=== PATIENT | female | born 2005 | race Caucasian/White ===

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

== ENCOUNTER 2024-01-13 22:10 | Emergency (ER) | payer MEDICAID, SELFPAY ==
[2024-01-13 22:15] VITALS: BP 115/78; PULSE 73; RESP 18; TEMP 36.6; O2SAT 96; BMI 24.4
--- NOTE | 2024-01-13 22:34 | ED.GENADULT ---
HPI - General Adult General Chief complaint: Abdominal Pain Stated complaint: 5 wks , stomach pains Time Seen by Provider: 01/13/24 22:34 History of Present Illness HPI narrative: Presents with abdominal pain in her lower abdomen. Currently nauseous, vomited once. Has first OB appointment tomorrow 18-year-old young woman presenting to the emergency department with concern of lower abdominal pain. Is accompanied by her partner. History of constipation. Is constipated. Treating with prune juice other juice and fiber supplementation. Did have a bowel movement today. 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 She had sit down was feeling cramping and throbbing in the pelvis kind of radiating across. Centralized somewhat by the time she got here to the emergency department. No dysuria. No bleeding. No recent intercourse. Related Data Home Medications Medication Instructions Recorded Confirmed loratadine-pseudoephedrine PO PRN 09/30/23 prenatals 01/13/24 Previous Rx's Medication Instructions Recorded amoxicillin 500 mg capsule 500 mg PO TID 7 days #21 caps 10/03/23 Allergies Allergy/AdvReac Type Severity Reaction Status Date / Time No Known Drug Allergies Allergy Verified 01/27/24 13:36 Review of Systems Status of ROS: Reports: 6 or more systems reviewed and unremarkable except as noted in History and below [facility] Medical History No significant past medical history Surgical History No significant past surgical history Social History Smoking Status: Never smoker Do you use any of these nicotine containing products: None Second hand tobacco smoke exposure: No How often do you have a drink containing alcohol: never How often do you have six or more drinks on one occasion: Never AUDIT-C Alcohol total score: 0 Non-prescribed substance use: denies use service: No Exam Narrative: Exam Narrative: Very pleasant. NAD. Well-nourished. Carefully casually groomed. Breathing easily. Lungs are clear. Heart in regular rate and rhythm without murmur rub or gallop. Abdomen is soft and a little uncomfortable to palpation in the suprapubic area. No flank pain. Not particularly tender in the inguinal ligaments here. Pelvic exam otherwise is not done. Const: Vital Signs, click to edit/add: Vital Signs - 24 hr 01/13/24 22:15 Temperature 98 F Pulse Rate [Right Pulse Oximeter] 73 Respiratory Rate 18 Blood Pressure [Ri ght Upper Arm] 115/78 Pulse Oximetry 96 Oxygen Delivery Me thod Room Air Documenting provider has reviewed patient's vital signs: yes Course Vital Signs Vital signs: Initial Vital Signs Temperature 98 F 01/13/24 22:15 Temperature Source Temporal Artery Scan 01/13/24 22:15 Pulse Rate 73 01/13/24 22:15 Pulse Rhythm Regular 01/13/24 22:15 Respiratory Rate 18 01/13/24 22:15 Blood Pressure 115/78 01/13/24 22:15 Blood Pressure Mean 90 01/13/24 22:15 Blood Pressure Position Sitting 01/13/24 22:15 Pulse Oximetry 96 01/13/24 22:15 Oxygen Delivery Method Room Air 01/13/24 22:15 Vital Signs Temperature 98 F 01/13/24 22:15 Pulse Rate 73 01/13/24 22:15 Respiratory Rate 18 01/13/24 22:15 Blood Pressure 115/78 01/13/24 22:15 Pulse Oximetry 96 01/13/24 22:15 Oxygen Delivery Method Room Air 01/13/24 22:15 Temperature 98 F 01/14/24 00:52 Pulse Rate 68 01/14/24 00:52 Respiratory Rate 18 01/14/24 00:52 Blood Pressure 112/74 01/14/24 00:52 Pulse Oximetry 96 01/14/24 00:39 Oxygen Delivery Method Room Air 01/14/24 00:39 Medical Decision Making MDM Narrative Medical decision making narrative: Which check urinalysis here. Constipation certainly might be contributing given what she is said. Does not seem to demonstrate a musculoskeletal injury here. I did offer bedside ultrasound but we all acknowledge that it might be difficult to see anything. Does not appear to be experiencing miscarriage. Ectopic is in differential. Does not feel needs any intervention for pain Urinalysis was unremarkable. I did return with bedside ultrasound and able to visualize what looks to be intrauterine . I think we were seeing also appropriate cardiac activity. Appears relieved. See patient discharge plan further discussion Lab Data Lab results reviewed: Yes I reviewed the patient's lab results Labs: Lab Results 01/13/24 Range/Units 22:35 Urine Color Yellow (Yellow) Urine Appearance Clear (Clear) Urine pH 7.0 (5.0-8.5) Ur Specific [place] 1.020 (1.000-1.030) Urine Protein Negative (Negative) Urine Glucose (UA) Negative (Negative) Urine Ketones Negative (Negative) Urine Blood Negative (Negative) Urine Nitrite Negative (Negative) Urine Bilirubin Negative (Negative) Urine Urobilinogen 0.2 (0.2-1.0) Ur Leukocyte Esterase Negative (Negative) Urine RBC 0-2 (0-2) Urine WBC 0-2 (0-5) Ur Squamous Epith Cells Few (None-Few) Amorphous Sediment Moderate A (None) Urine Bacteria Few A (None) Discharge Plan Discharge Clinical Impression: Pelvic pain, Early stage of Patient Disposition: Home w/ Parent or Adult Condition: Improved Additional Instructions: Stay well-hydrated. Return for marked increase in persistent pain, bleeding, associated fever. Best wishes on your appointment tomorrow and the remainder of your . Prescriptions: No Action loratadine-pseudoephedrine [Claritin-D 12 Hour] PO PRN amoxicillin 500 mg capsule 500 mg PO TID 7 Days Qty: 21 0RF prenatals Follow Up/Referrals: Mary Christine PA-C [Primary Care Provider] - Stand Alone Forms: [employer] Info Instructions
[2024-01-13 22:48] LABS: Appearance Urine Clear (Clear); Bilirubin Urine Negative (Negative); Blood Urine Negative (Negative); Color Urine Yellow (Yellow); Glucose Urine Negative (Negative); Ketones Urine Negative (Negative); Leukocyte Esterase Urine Negative (Negative); Nitrite Urine Negative (Negative); Protein Urine Negative (Negative); Urobilinogen Urine 0.2 (0.2-1.0)
[2024-01-13 22:59] LABS: Amorphous Sediment Urine Moderate; Bacteria Urine Few; RBC Urine 0-2 (0-2); Squamous Epithelial Cell Urine Few (None-Few); WBC Urine 0-2 (0-5)
[2024-01-14 00:39] VITALS: BP 112/74; PULSE 68; RESP 18; TEMP 36.6; O2SAT 96
[2024-01-14 00:52] VITALS: BP 112/74; PULSE 68; RESP 18; TEMP 36.6
== END 2024-01-14 00:52 | disposition home or self-care (01) ==
PROVIDERS: Emergency Provider Family Medicine; PCP Student in an Organized Health Care Education/Training Program
DX: R10.2 Pelvic and perineal pain (principal); Z3A.01 Less than 8 weeks gestation of pregnancy
CPT/HCPCS: 81001; 87086; 99283; 99284

== ENCOUNTER 2024-01-27 13:25 | Emergency (ER) | payer MEDICAID, SELFPAY ==
[2024-01-27 13:31] VITALS: BP 122/79; PULSE 70; RESP 18; TEMP 37.3; O2SAT 100; BMI 23.9
--- NOTE | 2024-01-27 14:18 | ED.PREGNANCY ---
HPI - General Chief complaint: Vaginal Bleeding Stated complaint: 7 weeks , bleeding Time Seen by Provider: 01/27/24 13:27 History of Present Illness HPI Narrative: This 18-year-old female states that she is about 8 weeks and has been to her 1st OB appointment. She comes in today because she had some vaginal bleeding that started about an hour prior to arrival. She also states that she has had a few very mild cramps. This is her 1st . She is otherwise in good health. Related Data Home Medications Medication Instructions Recorded Confirmed loratadine-pseudoephedrine PO PRN 09/30/23 prenatals 01/13/24 Previous Rx's Medication Instructions Recorded amoxicillin 500 mg capsule 500 mg PO TID 7 days #21 caps 10/03/23 Allergies Allergy/AdvReac Type Severity Reaction Status Date / Time No Known Drug Allergies Allergy Verified 01/27/24 13:36 Review of Systems Status of ROS: Reports: 10 or more systems reviewed and unremarkable except as noted in History and below Narrative: Constitutional: No fevers, no weight gain or loss. Eyes: No discharge. No vision changes. HENT: No congestion, no sore throat, no ear pain. Cardiovascular: No chest pain, no palpitations. Respiratory: No shortness of breath, no wheezes, no cough. Gastrointestinal: No vomiting, no diarrhea. Genitourinary: No dysuria, no hematuria. Musculoskeletal: Normal range of motion. Skin: No rashes, no pruritis. Neurological: No dizziness, weakness, sensory change, speech change. Endo/Heme/Allergies: No bruising or bleeding. No polydipsia. Pysch: no suicidality, no anxiety, no insomnia. All other systems reviewed and are negative. [facility] Medical History (Updated 01/27/24 @ 14:23 by Jayy Barclay MD) No significant past medical history Surgical History No significant past surgical history Social History Smoking Status: Never smoker Do you use any of these nicotine containing products: None Second hand tobacco smoke exposure: No How often do you have a drink containing alcohol: never How often do you have six or more drinks on one occasion: Never AUDIT-C Alcohol total score: 0 Non-prescribed substance use: denies use service: No Exam Narrative: Exam Narrative: Constitutional: Well-developed, well-nourished, no acute distress. HEENT: Normocephalic, atraumatic. Neck: Normal range of motion. Nontender. Supple. Heart: Intact distal pulses. Lungs: No chest discomfort. No wheezes, rhonchi, or rales. Abdomen: Nontender. Back: Normal range of motion. Extremities: Normal range of motion. No injury. Skin: Intact. No rash. Warm. No erythema or pallor. Neurologic: No altered sensation. No weakness. Alert and oriented. Psychiatric: No suicidality. No anxiety or depression. No insomnia. Nursing notes and vitals signs are reviewed. Const: Vital Signs, click to edit/add: Vital Signs - 24 hr 01/27/24 13:31 Temperature 99.1 F Pulse Rate [Pulse Oximeter] 70 Respiratory Rate 18 Blood Pressure [Le ft Upper Arm] 122/79 Pulse Oximetry 100 Oxygen Delivery Me thod Room Air Course Vital Signs Vital signs: Initial Vital Signs Temperature 99.1 F 01/27/24 13:31 Temperature Source Temporal Artery Scan 01/27/24 13:31 Pulse Rate 70 01/27/24 13:31 Respiratory Rate 18 01/27/24 13:31 Blood Pressure 122/79 01/27/24 13:31 Blood Pressure Mean 93 01/27/24 13:31 Blood Pressure Position Sitting 01/27/24 13:31 Pulse Oximetry 100 01/27/24 13:31 Oxygen Delivery Method Room Air 01/27/24 13:31 Vital Signs Temperature 99.1 F 01/27/24 13:31 Pulse Rate 70 01/27/24 13:31 Respiratory Rate 18 01/27/24 13:31 Blood Pressure 122/79 01/27/24 13:31 Pulse Oximetry 100 01/27/24 13:31 Oxygen Delivery Method Room Air 01/27/24 13:31 Temperature 99.1 F 01/27/24 13:31 Pulse Rate 70 01/27/24 13:31 Respiratory Rate 18 01/27/24 13:31 Blood Pressure 122/79 01/27/24 13:31 Pulse Oximetry 100 01/27/24 13:31 Oxygen Delivery Method Room Air 01/27/24 13:31 MDM - OB/Uterine Contractions MDM Narrative Medical decision making narrative: This patient comes in with concern about a miscarriage as she has had some vaginal bleeding over the last hour or so. She states that it is not heavy bleeding and there is some minimal cramping. I did use bedside ultrasound and saw normal intrauterine with heart activity. This was greatly reassuring to the patient. I did discuss transvaginal ultrasound benefits along with checking blood but the patient is reassured with these ultrasound images. Her bleeding may be due to a subchorionic hemorrhage that drained. I advised her to follow-up with her OB clinic or return if symptoms are persistent or worsening. Discharge Plan Discharge Clinical Impression: Vaginal bleeding during Patient Disposition: Home, Self-Care Condition: Stable Additional Instructions: Continue current plans. Follow up with OB Clinic or return if symptoms are persistent or worsening. Prescriptions: No Action loratadine-pseudoephedrine [Claritin-D 12 Hour] PO PRN amoxicillin 500 mg capsule 500 mg PO TID 7 Days Qty: 21 0RF prenatals Follow Up/Referrals: Mary Christine PA-C [Primary Care Provider] - Stand Alone Forms: [facility] Info Instructions Procedures Ultrasound Other exam #1: Anatomical areas examined: Uterus at 8 weeks gestation. Indications: Vaginal bleeding. Exam type: focused emergency ultrasound Description/findings: Normal intrauterine at approximately 8 weeks gestation. heart activity is also detected. Impression: Normal intrauterine at approximately 8 weeks gestation.
== END 2024-01-27 14:30 | disposition home or self-care (01) ==
PROVIDERS: Emergency Provider Emergency Medicine Emergency Medical Services; PCP Student in an Organized Health Care Education/Training Program
DX: O20.9 Hemorrhage in early pregnancy, unspecified (principal); Z3A.01 Less than 8 weeks gestation of pregnancy
CPT/HCPCS: 76857; 99284

== ENCOUNTER 2024-08-07 12:58 | Outpatient (CLI) | payer MEDICAID, SELFPAY ==
[2024-08-07 13:16] VITALS: BP 112/67; PULSE 90; RESP 16; TEMP 36.7
[2024-08-07 13:35] LABS: Amnisure Rom* Negative
[2024-08-07 14:15] LABS: Appearance Urine Clear (Clear); Bilirubin Urine Negative (Negative); Blood Urine Negative (Negative); Color Urine Dark yellow (Yellow); Glucose Urine Negative (Negative); Ketones Urine 1+ (Negative); Leukocyte Esterase Urine Negative (Negative); Nitrite Urine Negative (Negative); Protein Urine Trace (Negative); pH Urine 6.5 (5.0-8.5)
[2024-08-07 14:22] LABS: Bacteria Urine Moderate; RBC Urine 0-2 (0-2); Squamous Epithelial Cell Urine Moderate (None-Few)
[2024-08-07 14:38] LABS: Clue Cells No Clue Cells Seen (None Seen); Trichomonas No Trichomonas Seen (None Seen); Yeast No Yeast Seen (None Seen)
[2024-08-07] MEDS: LACTATED RINGERS 1000 ML 1,000 ML IV (15:17)
--- NOTE | 2024-08-07 17:00 | PC.OBNST ---
NST Note NST Note Start: 08/07/24 13:16 Freq: ONCE Status: Active Protocol: Document 08/07/24 16:44 PORT (Rec: 08/07/24 16:44 [facility] Desktop) NST Note 1 Para (# of births) 0 EDC 09/09/24 Gestational Age In Weeks & Days 35 Weeks & 2 Days Patient Presented with Complaint(s) of Contractions/cramping,Leaking fluid Reactive Yes Appropriate for Gestational Age Yes KAY Bhardwaj Date 08/07/24 Reactive Yes Appropriate for Gestational Age Yes KAY Daniels Date 08/07/24 OB NST charge Yes Complete NST Note via Write Note Yes The provider's electronic signature indicates the NST is reactive/appropriate for gestational age. *Note to provider: If an addendum is required, open the patient's chart and click on the note under the Nurse/Allied Health tab.
== END 2024-08-07 16:30 | disposition home or self-care (01) ==
LOC: OB OUT 12:59 → OB 13:21
PROVIDERS: PCP Family Medicine; Visit Provider Family Medicine
DX: O47.03 False labor before 37 completed weeks of gestation, third trimester (principal); Z3A.35 35 weeks gestation of pregnancy
CPT/HCPCS: 59025; 81001; 81003; 84112; 87086; 87210; G0463; J7120

== ENCOUNTER 2024-08-18 22:27 | Outpatient (CLI) | payer MEDICAID, SELFPAY ==
[2024-08-18 22:38] VITALS: BP 116/73; PULSE 77
[2024-08-18 22:47] VITALS: TEMP 36.9
[2024-08-18 22:54] VITALS: BP 113/59; PULSE 75
[2024-08-18 23:11] VITALS: BP 122/65; PULSE 71
[2024-08-18 23:18] LABS: Hematocrit 34.8 % (33.0-51.0); Mean Corpuscular HGB Conc 35 gm/dL (32-36); Mean Corpuscular Hemoglobin 29 pg (26-34); Mean Corpuscular Volume 84 fL (80-100); Platelet Count* 182 K/uL (140-440); Red Blood Count 4.17 m/uL (4.00-5.20); White Blood Count* 7.59 K/uL (4.50-11.00)
[2024-08-18 23:27] VITALS: BP 113/55; PULSE 70
[2024-08-18 23:29] LABS: Slide Review Reflex No
[2024-08-18 23:33] LABS: Alanine Aminotransferase* 24 U/L (4-35); Aspartate Amino Transferase* 33 U/L (12-35); Blood Urea Nitrogen* 12 mg/dL (5-24); Total Protein Urine 9 mg/dL
[2024-08-18 23:34] LABS: Creatinine Urine 58.5 mg/dL; Protein Creatinine Ratio Urine 0.15 (0-0.19)
[2024-08-18 23:43] VITALS: BP 117/65; PULSE 68
[2024-08-18 23:43] LABS: Uric Acid* 5.1 mg/dL (2.2-8.4)
--- NOTE | 2024-08-19 00:52 | PC.OBNST ---
NST Note NST Note Start: 08/18/24 22:30 Freq: ONCE Status: Active Protocol: Document 08/19/24 00:43 ELLIE (Rec: 08/19/24 00:46 ELLIE [id number]) NST Note 1 Para (# of births) 0 EDC 09/09/24 Gestational Age In Weeks & Days 37 Weeks & 0 Days Patient Presented with Complaint(s) of Other Other Complaints Bilateral lower extremity edema Reactive Yes RN Arslan Howell, KAY Date 08/18/24 Reactive Yes KAY Barker RN Date 08/18/24 OB NST charge Yes Complete NST Note via Write Note Yes The provider's electronic signature indicates the NST is reactive/appropriate for gestational age. *Note to provider: If an addendum is required, open the patient's chart and click on the note under the Nurse/Allied Health tab.
== END 2024-08-18 23:55 | disposition home or self-care (01) ==
LOC: OB OUT 22:27 → OB 22:27
PROVIDERS: PCP Family Medicine; Visit Provider Family Medicine
DX: O12.03 Gestational edema, third trimester (principal); Z3A.37 37 weeks gestation of pregnancy
CPT/HCPCS: 36415; 59025; 82570; 84156; 84450; 84460; 84520; 84550; 85027; G0463

== ENCOUNTER 2024-08-25 15:50 | Inpatient (IN) | payer MEDICAID, SELFPAY ==
[2024-08-25] VITALS (8 sets, daily range): BP systolic 108–129; BP diastolic 62–77; PULSE 72–86; RESP 16; TEMP 36.7–37.2; O2SAT 94–100; BMI 34.1
[2024-08-25 17:03] LABS: Basophils Absolute Auto 0.06 K/uL (0.00-0.30); Basophils Percent Auto 0.7 % (0.0-3.0); Eosinophils Absolute Auto 0.05 K/uL (0.00-0.50); Eosinophils Percent Auto 0.5 % (0.0-7.0); Hematocrit 36.2 % (33.0-51.0); Hemoglobin* 12.5 gm/dL (12.0-16.0); Immature Granulocytes Abs Auto 0.08 K/uL (0.00-0.30); Immature Granulocytes Pct Auto 0.9 %; Mean Corpuscular HGB Conc 35 gm/dL (32-36); Mean Corpuscular Hemoglobin 29 pg (26-34); Mean Corpuscular Volume 83 fL (80-100); Monocytes Percent Auto 5.9 % (0.0-11.0); Platelet Count* 176 K/uL (140-440); RDW Coefficient of Variation % 13.8 % (11.5-15.5); Red Blood Count 4.34 m/uL (4.00-5.20)
[2024-08-25 17:09] LABS: Slide Review Reflex No
[2024-08-25] MEDS: miSOPROStoL 25 MCG/0.25 TABLET PO (17:20)
--- NOTE | 2024-08-25 17:21 | PM.OBHPLI ---
OB - H&P: HPI Labor/Induction History of Present Illness Date Seen: 08/25/24 Chief Complaint: IOL 2/2 cholestasis Chief complaint: IOL for cholecystitis : 1 Para: 0 Date of last menstrual period: 12/04/23 Estimated date of delivery: 09/09/24 Gestational age based on last menstrual period: 37 Narrative: Bianka Valdez is a 19 year old at 37.6 weeks gestation by LMP, who presents for IOL secondary to cholestasis of . Bile acids elevated to 20 on 08/11/24. monitoring since time of diagnosis with NST and BPP have been normal. She started on ursodiol and reports this helps with itching. has been otherwise uncomplicated. GBS negative. She reports normal FM. No vaginal bleeding outside of spotting after cervical check and no LOF. Denies headache, dizziness, vision changes, abdominal pain, or changes in swelling. History of Present Dating criteria: based on LMP care: good care complications comment: cholestasis Labs Blood type: O (+) positive Rubella: immune RPR/VDLR: nonreactive GBS status: negative HBsAG: negative Meds Home Medications and Allergies Home Medications ?Medication ?Instructions ?Recorded ?Confirmed ?Type prenatals 1 tab .Route DAILY 01/13/24 08/25/24 History ursodiol 300 mg capsule 300 mg PO DAILY 08/18/24 08/25/24 History Allergies Allergy/AdvReac Type Severity Reaction Status Date / Time No Known Drug Allergies Allergy Verified 01/27/24 13:36 OB - H&P: Exam Physical Exam: Vital signs: Temp Pulse Resp BP Pulse Ox 98.8 F 76 16 123/77 100 08/25/24 16:16 08/25/24 16:16 08/25/24 16:16 08/25/24 16:16 08/25/24 16:29 Narrative: Gen: alert, pleasant, NAD Resp: CTA b/l CV: RRR, no murmurs Abd: gravid, nontender to palpation SVE: 4 cm/60%/-1, posterior, medium consistency Fetus (Single): Heart Rate Baseline: 135 Monitor Accelerations: Present Monitor Decelerations: None Financial Assistance Specialist Variability: Moderate (6-25) OB - Results Labs Labs: Short CBC 08/25/24 Range/Units 16:43 WBC 9.10 (4.50-11.00) K/uL Hgb 12.5 (12.0-16.0) gm/dL Hct 36.2 (33.0-51.0) % Plt Count 176 (140-440) K/uL OB - Problem Based A/P Additional Plan (1) Cholestasis during : Status: Acute (2) Term : Status: Acute Plan at 37.6w with cholestasis who presents for IOL. O+, GBS neg. 1. IOL -> Salmon score =7 Plan for cervical ripening with PO cytotec 25 mcg. Repeat SVE in 3-4 hours and repeat dose if unchanged. Start pitocin per protocol for additional augmentation if needed Anticipate 2. Cholestasis Reactive NST Continue ursodiol TID
[2024-08-25] MEDS: OXYTOCIN 30 unit/500 ML in NS 30 UNIT/500 ML BAG IVPB (21:15)
[2024-08-25] MEDS: LACTATED RINGERS 1000 ML 1,000 ML 125 ML IV (21:16)
[2024-08-26] VITALS (35 sets, daily range): BP systolic 94–145; BP diastolic 50–94; PULSE 64–120; RESP 16–25; TEMP 36.3–37.7; O2SAT 97–100
--- NOTE | 2024-08-26 06:36 | PM.OBPNL ---
Subjective Date Seen: 08/26/24 Narrative: Pt sleeping comfortably in bed upon my arrival. She states she is sometimes feeling contractions and they are uncomfortable, but not currently. ROM occurred at 0110. 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 Active labor by SVE (6 cm dilated) but clinically appears more prodromal as she is relatively comfortable and not feeling regular, strong contractions. SROM at 0110 with clear fluid. Cat I FHT primarily with intermittent Cat II. IUPC placed to aid in pitocin augmentation and ensure adequate MVUs. - continue pitocin augmentation - epidural if/when desired - anticipate
--- NOTE | 2024-08-26 09:12 | PM.OBPNL ---
Subjective Time Seen by Provider: 09:00 Date Seen: 08/26/24 Narrative: I was asked by Dr Adamson to evaluate IUPC and replace if needed. Per RN, pt turned and IUPC has stopped working. 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 Pt reports contractions 05/18 since initial IUPC placed. She gets relief between contractions. Objective Vital Signs: Last Vital Signs Temp 98.3 F 08/26/24 05:21 Pulse 76 08/26/24 08:02 Resp 16 08/26/24 05:21 BP 94/50 L 08/26/24 08:02 Pulse Ox 98 08/26/24 05:22 Pelvic Exam Dilation (cm): 6 Effacement (%): 70 Station: -1 Comments: +there is bulging bag present. pt consented for AROM. AROM performed with blood tinged fluid. 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 There was forebag which was AROM'd after pt verbal consent. -IUPC replaced -Increase pitocin per protocol based on MVU's/contractions -discussed with pt. She did not have any ?'s -Updated Dr Adamson
[2024-08-26] MEDS: TRANEXAMIC ACID 100 MG/ML INJ 1000 MG IV (13:00)
[2024-08-26] MEDS: 0.9 % SODIUM CHLORIDE 500 ML IV ×2 (13:23→14:45)
[2024-08-26 13:28] LABS: Basophils Percent Auto 0.2 % (0.0-3.0); Hematocrit 33.7 % (33.0-51.0); Hemoglobin* 11.6 gm/dL (12.0-16.0); Immature Granulocytes Pct Auto 0.4 %; Lymphocytes Percent Auto 6.4 % (20-44); Mean Corpuscular HGB Conc 34 gm/dL (32-36); Mean Corpuscular Hemoglobin 29 pg (26-34); Mean Corpuscular Volume 84 fL (80-100); Monocytes Percent Auto 3.6 % (0.0-11.0); Neutrophils Percent Auto 89.4 % (42.0-72.0); Platelet Count* 180 K/uL (140-440); RDW Coefficient of Variation % 13.7 % (11.5-15.5); Red Blood Count 4.01 m/uL (4.00-5.20)
[2024-08-26 13:30] LABS: Slide Review Reflex No
--- NOTE | 2024-08-26 13:41 | W.PM.VAGD1_ITS ---
Procedure Delivery date: 08/26/24 Procedure Done: Global Procedure Details: Procedures Operation Date: 08/26/24 13:40 <No data on this case meets the specified criteria> Events: Other (cholestasis) Intrapartal Events: Labor Augmentation, Labor Induction and Excessive Bleeding Delivery monitor: external FHT and internal uterine Route of delivery: Laceration description: Perineal - 3rd Degree Estimated blood loss (mL): 1,100 Anesthesia type: General Disposition: PACU Narrative: G1 now P1 presented for IOL 2/2 cholestasis. Induction initiated on 08/25 with oral cytotec x1, then transitioned to pitocin. SROM at 01:10 with clear fluid. Vaginal delivery of viable female at 12:54. Brisk bleeding was noted prior to placenta delivering, at which time rectal cytotec was administered. Placenta delivered complete and intact at 13:01. There was a 3 vessel cord. Despite pitocin bolus and rectal cytotec, uterine atony was noted along with ongoing brisk bleeding. TXA was ordered and attempted to place Joelle. Asked RN to call OB provider to bedside. Code Eh called. Unable to establish appropriate suction with Joelle due to clot formation. Began massive transfusion protocol. Patient was transported to OR - see documentation from Dr. Dena Huitron for further details. Found to have 3rd degree laceration along with uterine atony. Subsequently given methergine and hemabate. EBL 1100. [place] Inf[place] Infant Gender: Female presentation: vertex Placental Delivery Description: Spontaneous Cord Description: 3 Vessels
[2024-08-26 13:43] LABS: INR 0.97 (0.91-1.10); Prothrombin Time 13.5 Seconds
[2024-08-26 13:44] LABS: Partial Thromboplastin Time* 29 Seconds (23-33)
[2024-08-26 13:45] LABS: Fibrinogen* 380 mg/dL (200-450)
--- NOTE | 2024-08-26 14:29 | P.ANES_ITS ---
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
--- NOTE | 2024-08-26 15:21 | PM.PROC ---
Procedure Note Time Seen by Provider: 13:20 Date Seen: 08/26/24 Date of procedure: 08/26/24 Will [facility] bill your pro fee for this procedure?: Yes Pre-op diagnosis: Hemorrhage Post-op diagnosis: same Procedure: Preoperative diagnosis: Bianka is a 19-year-old 1 para 1 with a hemorrhage. Postoperative diagnosis: Same, uterine atony Procedure: Exam under anesthesia, manual evacuation of the uterus, repair of 3rd degree perineal laceration Anesthesia: General endotracheal Surgeon: Tori Bazzi MD IV fluid: 1100 mL Blood products: 2 units packed red blood cells Estimated blood loss: 100 mL Urine output: 500 mL, clear urine at the end the procedure Specimen: None Drains: Stevens to gravity Findings: On exam under anesthesia there was 3rd degree perineal laceration. With manual evacuation of the uterus there was approximately 100 mL of blood clot removed, no evidence of retained products of conception. Evaluation of the cervix showed no evidence of cervical laceration. The patient had received Pitocin 30 units in 500 mL wide open, 1 g TXA and 800 mg Cytotec rectally prior to moving to the operating room. Procedure: After consent form was reviewed and signed the patient was brought to the operating room and general anesthesia was found to be adequate. She was placed in the dorsal lithotomy position and prepped and draped in a normal sterile manner. A Stevens catheter was then placed. An exam under anesthesia was performed with findings stated above. And manual evacuation of the uterus was performed with a small amount of blood clots being expelled. A weighted speculum was placed in the vaginal canal. A Olancha retractor was then placed and the cervix was thoroughly inspected which showed no evidence of cervical laceration. The weighted speculum and Osvaldo retractor were then removed. Attention was then turned to repairing the 3rd degree laceration. The fascia lateral to the external anal sphincter was grasped with 2 Allis clamps. 3 figure of 8 sutures were then placed 1 superior, 1 inferior and 1 directly below the Allis clamps. This was to reinforce the capsule. The remaining second-degree laceration was repaired in the usual manner. Two [id number] sutures were then placed in the vagina to obtain hemostasis. The vaginal tissues were noted to be friable and oozing so a vaginal pack was placed. Sponge, lap and instrument counts were correct x2 at the end of the procedure. The patient was awakened from anesthesia and taken to the recovery area in stable condition. In the operating room the patient received: 1. 2 units packed red blood cells 2. 2 g IV Ancef 3. Methergine 0.2 mg IM 4. Hemabate 0.25 mg IM 5. 1 unit FFP was started prior to the patient leaving the operating room.
[2024-08-26] MEDS: LOPERAMIDE HCL 2 MG CAPSULE 4 MG PO (15:30)
[2024-08-26] MEDS: fentaNYL 100 MCG/2 ML inj IVP (16:38)
[2024-08-26] MEDS: LIDOCAINE 1 % PF 30 ML INJECTION (16:39)
[2024-08-27 01:37] VITALS: BP 114/72; PULSE 91; RESP 12; TEMP 37; O2SAT 97
[2024-08-27] MEDS: ACETAMINOPHEN 500 MG TABLET 1000 MG PO (01:44)
[2024-08-27 05:58] VITALS: BP 109/69; PULSE 88; RESP 16; TEMP 37.1; O2SAT 99
[2024-08-27 07:08] LABS: Hemoglobin* 10.3 gm/dL (12.0-16.0)
[2024-08-27 08:25] VITALS: BP 106/67; PULSE 85; RESP 16; TEMP 37; O2SAT 99
--- NOTE | 2024-08-27 08:31 | P.OBPN_ITS ---
OB - PN:Subj Subjective Time Seen by Provider: 08:31 Date Seen: 08/27/24 Interval history: pt seen in routine rounds. She feels 'sore' this morning. but working on latching, expressing milk and using donor milk. Has been up and ambulating without lightheadedness. OB - PN: Obj Exam Physical Exam: Vital signs: Temp Pulse Resp BP Pulse Ox O2 Del Method 98.6 F 85 16 106/67 99 Room Air 08/27/24 08:25 08/27/24 08:25 08/27/24 08:25 08/27/24 08:25 08/27/24 08:25 08/27/24 08:25 Constitutional: Constitutional: no acute distress and cooperative Routine Abdominal Exam: Fundus: Present firm (at umbilicus) Routine Exam: Comments: vaginal packing in place, removed without difficulty. OB - PN: Obj Data Labs Labs: Laboratory Results - last 24 hr 08/25/24 08/26/24 08/27/24 16:29 13:20 06:14 WBC 12.50 H RBC 4.01 Hgb 11.6 L 10.3 L Hct 33.7 MCV 84 MCH 29 MCHC 34 RDW Coeff of Cory 13.7 Plt Count 180 Neut % (Auto) 89.4 H Lymph % (Auto) 6.4 L [place] % (Auto) 3.6 Eos % (Auto) 0.0 Baso % (Auto) 0.2 Neut # (Auto) 11.20 H Lymph # (Auto) 0.80 L [place] # (Auto) 0.50 Eos # (Auto) 0.00 Baso # (Auto) 0.00 Abs Immat Gran (auto) 0.10 Imm/Tot Granulo (auto) 0.4 INR 0.97 APTT 29 Fibrinogen 380 Blood Type O Positive Antibody Screen NEGATIVE Crossmatch (AHG) See Detail OB - PN: A/P Delivery Assessment and Plan (1) Cholestasis during : Status: Acute (2) Term : Status: Acute (3) hemorrhage: Problem details: immediately after delivery, taken to OR. Thought from atony. EBL 1100 Status: Acute Assessment and Plan: -vaginal packing and urinary catheter removed this morning per OB's recommendation. -Continue monitor bleeding. Is on iron, stool softener. -plan likely home tomorrow if doing well
[2024-08-27] MEDS: IBUPROFEN 600 MG TABLET PO ×3 (08:55→22:17)
[2024-08-27] MEDS: FERROUS SULFATE 325 MG TABLET PO (08:56)
[2024-08-27] MEDS: DOCUSATE SODIUM 100 MG CAPSULE PO (08:56)
[2024-08-27 13:53] VITALS: BP 100/61; PULSE 72; RESP 16; TEMP 37; O2SAT 98
[2024-08-27 17:32] VITALS: BP 116/72; PULSE 67; RESP 16; TEMP 36.5; O2SAT 98
[2024-08-27 22:28] VITALS: BP 112/65; PULSE 75; RESP 16; TEMP 36.4; O2SAT 98
[2024-08-28 01:09] LABS: Rapid Plasma Reagin (RPR) Non Reactive (Non Reactive)
[2024-08-28 05:42] VITALS: BP 121/77; PULSE 70; RESP 16; TEMP 36.9; O2SAT 98
[2024-08-28 08:15] VITALS: BP 120/76; PULSE 67; RESP 16; TEMP 37; O2SAT 98
--- NOTE | 2024-08-28 08:19 | PM.OBDSVD1 ---
DS: Providers Provider Time Seen by Provider: 08:19 Date Seen: 08/28/24 Date of admission: 08/25/24 15:50 Primary care physician: Cindy Adamson DO Admitting Clinician: Cindy Adamson DO Consults: Dr Dena Huitron Attending Physician on discharge: Cindy Adamson DO Date of Discharge: 08/28/24 DS: Diagnosis Discharge Diagnosis (1) hemorrhage: Status: Acute Problem details: immediately after delivery, taken to OR. Thought from atony. EBL 1100. Vaginal packing removed 08/27/24 am and bleeding wnl since (2) Cholestasis during : Status: Acute (3) (normal spontaneous vaginal delivery): Status: Acute Exam Const: Vital Signs, click to edit/add: Vital Signs - 24 hr 08/27/24 08:25 08/27/24 13:53 08/27/24 17:32 Temperature 98.6 F 98.6 F 97.7 F Pulse Rate [Pulse Oximeter] 85 72 67 Respiratory Rate 16 16 16 Blood Pressure [Le ft Arm] 106/67 100/61 116/72 Pulse Oximetry 99 98 98 Oxygen Delivery Me thod Room Air Room Air Room Air 08/27/24 22:28 08/28/24 05:42 Temperature 97.5 F L 98.4 F Pulse Rate [Pulse Oximeter] 75 70 Respiratory Rate 16 16 Blood Pressure [Le ft Arm] 112/65 121/77 Pulse Oximetry 98 98 Oxygen Delivery Me thod Room Air Room Air Documenting provider has reviewed patient's vital signs: yes Common normals: no apparent distress General appearance: cooperative and comfortable : Uterus: U/1 and firm OB - DS: Summary Hospital Course Hospital Course: The patient is a 19 year old G 1 P 0 at 38 weeks gestation that was admitted to the Center on 08/25/24 for induction due to cholestasis of .. She had a vaginal delivery complicated by PPH with EBL 1100. She was taken to the OR for exam under anesthesia, manual evacuation of uterus and repair of 3rd degree laceration. You can refer to Dr Dena Lang note for details. She had vaginal packing placed. This was removed 08/27/24 am with no significant bleeding since. She delivered a viable female . She is and supplementing. the patient has done well. Peripartum Data Infant delivery method: Vaginal Laceration description: Perineal - 3rd Degree Procedures: Procedures Operation Date: 08/26/24 13:40 Actual Procedure Side Surgeon p Exam under Anesthesia, 3rd Degree perineal Laceration Repair, Manual Exporation of Uterus Not Applicable Tori Bazzi MD [place] Gender: Female Infant Discharge Plan: Home Status at Discharge Functional status at discharge: independent ambulation Time Spent with Patient Time attestation: Total time spent providing and/or coordinating discharge services: Discharge Plan Discharge Disposition: Home, Self-Care Date of Admission: 08/25/24 15:50 Consulting Providers: Tori Bazzi Primary Care Provider: Cindy Adamson Condition: Stable Anticipated Discharge Date/Time: 08/28/24 08:29 Discharge Medications: New ferrous sulfate 325 mg (65 mg iron) Tablet 325 mg PO DAILYWM Qty: 30 0RF Continued prenatals 1 tab .Route DAILY Discontinued ursodiol 300 mg capsule 300 mg PO DAILY Patient Comments: has not started taking, has not picked up prescription Discharge Orders: Discharge Order (Routine); Ordered 08/28/24 Ordered By: Tali Paz Patient Education: OB Vaginal/Breast Feeding Activity Detail: pelvic rest x 6 weeks Discharge Diet: Regular Follow Up Appointments: Cindy Adamson DO [Primary Care Provider] - (Make [address] Adamson. Touch base with her at check this week) Forms: [facility] Info Instructions CBC Results Results CBC w Differential: WBC 12.50 K/uL (4.50-11.00) H RBC 4.01 m/uL (4.00-5.20) Hemoglobin 10.3 gm/dL (12.0-16.0) L Hematocrit 33.7 % (33.0-51.0) MCV 84 fL (80-100) MCH 29 pg (26-34) MCHC 34 gm/dL (32-36) Platelet Count 180 K/uL (140-440) Neutrophils (%) (Auto) 89.4 % (42.0-72.0) H Neutrophils # (Auto) 11.20 K/uL (1.7-7.0) H Lymphocytes (%) (Auto) 6.4 % (20-44) L Monocytes (%) (Auto) 3.6 % (0.0-11.0) Eosinophils (%) (Auto) 0.0 % (0.0-7.0) Basophils (%) (Auto) 0.2 % (0.0-3.0)
[2024-08-28] MEDS: DOCUSATE SODIUM 100 MG CAPSULE PO (09:31)
[2024-08-28] MEDS: FERROUS SULFATE 325 MG TABLET PO (09:31)
== END 2024-08-28 14:00 | disposition home or self-care (01) | DRG 806 ==
PROVIDERS: Obstetrics & Gynecology; Admitting Provider Family Medicine; PCP Family Medicine; Visit Provider Family Medicine
PROC: 0UQG0ZZ Repair Vagina, Open Approach (ICD-10-PCS; principal; 2024-08-26 13:30)
DX: O99.62 Diseases of the digestive system complicating childbirth (principal); D62 Acute posthemorrhagic anemia; Z37.0 Single live birth; K80.20 Calculus of gallbladder without cholecystitis without obstruction; O70.20 Third degree perineal laceration during delivery, unspecified; O72.1 Other immediate postpartum hemorrhage; O90.81 Anemia of the puerperium; Z3A.37 37 weeks gestation of pregnancy
CPT/HCPCS: 00940; 36415; 36430; 85018; 85025; 85384; 85610; 85730; 86592; 86850; 86900; 86901; 86922; 99140; A9270; J0330; J1100; J2003; J2210; J2250; J2405; J2704; J3010; J7030; J7120; P9016; P9017

== ENCOUNTER 2024-12-21 09:03 | Emergency (ER) | payer MEDICAID, SELFPAY ==
--- OUTSIDE RECORDS SUMMARY | 2024-12-21 09:06 | XMS_ITS | Clinical Summary ---
Author Organization [facility] Address [place], [place] [address] Care Team Providers Care Housing Relocation Name Role Phone Cindy Adamson DO Primary Care Provider [phone] Allergies No known active allergies Medications loratadine (CLARITIN REDITABS) 10 mg orally disintegrating tabletIndications: Seasonal allergic rhinitis Place 1 tablet on the tongue once daily. 30 tablet 11 9 Active multivitamin 27 mg iron- 800 mcg folic Take 1 Tablet by mouth once daily with a meal. Active Breast PumpIndications:La ctating mother,Encounter for care Electronic breast pump for home use. Reason for need: . Length of need: 3 months. 1 Each 4 Active Active Problems Problem Noted Date Diagnosed Date Cyst of right ovary 02/25/2019 Plantar warts 10/05/2018 Resolved Problems Problem Noted Date Diagnosed Date Resolved Date Cholestasis during in third trimester 08/22/2024 10/27/2024 01/20/2024 10/27/2024 Overview (01/20/2024): Estimated Date of Delivery: 09/09/24 Patient's last menstrual period was 12/04/2023 (approximate). GBS: 28wk labs: Last Tdap: 2014 Last Flu vaccine: 2020 OB Labs: ABORH Date Value Ref Range Status 01/14/2024 O Rh Positive Final ANTIBODY SCREEN Date Value Ref Range Status 01/14/2024 Negative Negative Final TREPONEMA PALLIDUM Date Value Ref Range Status 01/14/2024 Non-Reactive Non-Reactive Final RUBELLA IGG ANTIBODY Date Value Ref Range Status 01/14/2024 2.96 >=1.00 Index Final INTERPRETATION Date Value Ref Range Status 01/14/2024 Positive Final Comment: Presence of detectable IgG antibodies. A positive result generally indicates exposure to the virus or previous vaccination, but is not an indication of active infection or stage of disease. 01/14/2024 Positive Final Comment: Presence of detectable IgG antibodies. A positive result generally indicates exposure to the virus or previous vaccination, but is not an indication of active infection or stage of disease. HBSAG Date Value Ref Range Status 01/14/2024 Nonreactive Nonreactive Final HEPATITIS C ANTIBODY Date Value Ref Range Status 01/14/2024 Non-Reactive Non-Reactive Final Comment: Please note, per www.CDC.gov: If a patient is known to be at high risk of HCV infection, or is symptomatic, and the physician's suspicion of HCV infection is high, HCV RNA testing is often employed and is of diagnostic value, even after an initial negative anti-HCV test result. HIV-1/HIV-2 SCREEN Date Value Ref Range Status 01/14/2024 Non-Reactive Non-Reactive Final Comment: HIV-1 p24 and HIV-1/HIV-2 Ab Not Detected. VARICELLA ZOSTER IGG ANTIBODY Date Value Ref Range Status 01/14/2024 3,045.0 >=165.0 INDEX Final HEMOGLOBIN Date Value Ref Range Status 01/14/2024 15.0 12.0 - 16.0 g/dL Final PLATELET COUNT Date Value Ref Range Status 01/14/2024 218 140 - 440 thou/cu mm Final CHLAMYDIA PROBE Date Value Ref Range Status 01/14/2024 Negative Final N GONORRHOEAE PROBE Date Value Ref Range Status 01/14/2024 Negative Final No Known Allergies OB History Para Term AB Living 1 0 0 0 0 0 SAB IAB Ectopic Multiple Live Births 0 0 0 0 0 # Outcome Date GA Lbr Toribio/2nd Weight Sex Delivery Anes PTL Lv 1 Current Past Medical History: . Date Varicella 2005 8 months of age Past Surgical History: . Laterality Date NO PREVIOUS SURGERY Problems (from 01/14/24 to present) No problems associated with this episode. Jazz Gonzales RN ....01/20/2024 9:28 AM Dysmenorrhea in adolescent 02/25/2019 0 04/11/2024 Encounters Date Type Department Care Team Description 10/27/2024 1:10 PM [employer]ISHER Office Visit [facility] [address] [place], [place] [id number] Cindy Adamson, Care (delivered 08/26/24, having on and off bleeding, will bleed for 1 week, stop for 2 days, and then come back ) 10/27/2024 Travel from Last 3 Months Immunizations Name Administration Dates Next Due AMB Influenza, (Flumist) Meka e Intranasal,LAIV4 (Flu Clinic Only) 08/12/2013 AMB Influenza, IIV4 PF (=>6 mos Flulaval,Fluzone Fluarix)(Flu Clinic Only) 08/15/2014 COVID-19 vaccine ([employer] NTVidyo 30mcg/0.3mL) PF, MDV 04/15/2021,03/25/2021 DTaP 07/06/2008,09/11/2005 [id number] (Pediarix) 2004,2004,1 HIB PRP-OMP (PedvaxHIB) 09/11/2005,2004, HPV 9 (Gardasil 9) 03/03/2016,07/24/2015, 015 Hepatitis A (Peds) 06/26/2009,07/06/2008 Inactivated Polio Vaccine 07/06/2008 Influenza A (H1N1), Inactivated 09/28/2009 Influenza, IIV3 (Age >=3 years) 08/10/2008 Influenza, IIV4 10/08/2021, 0,07/21/2019,08/16,08/15/2014 MENINGOCOCCAL VACCINE 2 VIAL 2MO-55YO (MENVEO) 10/02/2020,06/28/2015 MMR 06/26/2009,06/19/2005 Pneumococcal conj 7-Valent (Prevnar 7) 0 12/24/2005,2004,2004,08/21 RSV, Bivalent Vaccine Recons tituted (Abrysvo 120MCG/0.5mL) 08/01/2024 Tdap 06/15/2024,06/28/2015 Varicella Vaccine 06/26/2009,06/19/2005 Family History Medical History Relation Name Comments Diabetes Father Hypertension Maternal Aunt Kidney disease Maternal Aunt Diabetes Maternal Grandfather Liver cancer Maternal Grandfather Migraines Maternal Grandmother Thyroid Disease Mother Asthma Other cousin Diabetes Paternal Grandfather No Known Problems Paternal Grandmother ADD / ADHD Sister Anxiety disorder Sister Depression Sister Relation Name Status Comments Father Maternal Aunt Maternal Grandfather Maternal Grandmother Mother Other Paternal Grandfather Paternal Grandmother Sister Social History Tobacco Use Types Packs/Day Years Used Date Smoking Tobacco: Never Smokeless Tobacco: Never Tobacco Cessation:Counseling Given: Yes Comments:no exposure Alcohol Use Standard Drinks/Week Comments No 0 (1 standard drink = 0.6 oz pur e alcohol) PHQ-2 Answer Date Recorded PHQ-2 TOTAL SCORE 0 01/29/2023 Calvin Depression Scale Answer Date Recorded Calvin Depression Scale Total 1 10/27/2024 The thought of harming myself has occurred to me . Never 10/27/2024 Social Connections Answer Date Recorded Do you often feel lonely or isolated from those around you? 0 02/15/2024 Financial Resource Strain Answer Date R ecorded Difficulty of Paying Living Expenses 3 02/15/2024 Difficulty of Paying Living Expenses Not on file 02/15/2024 Food Insecurity Answer Date Recorded Do you worry your food will run out before you are able to buy more? 1 02/15/2024 Transportation Needs Answer Date Record ed Does lack of transportation keep you from medica l appointments? 1 02/15/2024 Does lack of transportation keep you from work, meetings or getting things that you need? 1 02/15/2024 Housing Stability Answer Date Recorded What is your housing situation today? 1 02/15/2024 Utilities Answer Date Recorded Do you have trouble paying f or utilities (for example, heat, electricity, water, phone)? 1 02/15/2024 Comments No Sex and Gender Information Value Date Recorded Sex Assigned at Not on file Legal Sex Female 7:05 AM [employer] Gender Identity Not on file Sexual Orientation Not on file Obstetrics History Para Term AB IAB SAB Ectopic Multiple Livin g Live Births 1 1 1 1 1 Date Outcome GA Total Labor Labor/2nd/3rd Weight Sex Type Anes PTL Meka A1 A5 Name Clin 10/18/2 024 Term 38w 0d 3.71 kg (8 lb 3 oz) F Vag Living 8 9 Traxl er, Cindy Velarde DO Complications:Atony of uteru s, Hemorrhage Delivery Location:Hospital ( [facility]) Last Filed Vital Signs Vital Sign Reading Time Taken Comments Blood Pressure 104/71 10/27/2024 1:24 PM [employer]ISHER Pulse 87 10/27/2024 1:24 PM [employer] Temperature 37.6 C (99.7 F) 01/22/2023 6:23 PM CDT Respiratory Rate 20 01/22/2023 6:23 PM CDT Oxygen Saturation 97% 08/22/2024 11:23 AM CDT Inhaled Oxygen Concentration - - Weight 72 kg (158 lb 12.8 oz) 10/27/2024 1:24 PM [employer] Height 161.7 cm (5' 3.66) 01/14/2024 10:[address] Body Mass Index - - Plan of Treatment Health Maintenance Due Date Last Done Comments Well Child Check for age 3-20 10/08/2022 10/08/2021, 10/02/2020, 09/08/2018, Additional history exists Depression screening for age 12+ 01/31/2024 01/30/2023, 01/29/2023, 10/08/2021, Additional history exists COVID-19 vaccine series (2023- season) 2024 04/15/2021, 03/25/2021 Influenza for age 9-49 07/10/2024 , 10/02/2020, 07/21/2019, Additional history exists BMI (ht and wt on same day) for age 18+ 01/13/2025 01/14/2024, 01/29/2023 Chlamydia for age 16-24 01/13/2025 01/14/20 24, 08/11/2023, 01/29/2023, Additional history exists Tetanus booster 06/15/2034 06/15/2024, 06/28/2015 Pneumococcal series for age 6-49 Aged Out 12/24/2005, 2004, 2004, Additional history exists No longer eligible based on patient's age to complete this topic HPV series for age 9-26 Completed 03/03/20 16, 07/24/2015, 06/28/2015 Meningococcal series for age 11-21 Completed 10/02/2020, 06/28/2015 HIV for age 15-65 Completed 01/14/2024, 08/11/2023 Hepatitis C screening for age 18-79 Completed 01/14/2024, 08/11/2023 Tdap Completed 06/15/2024, 06/28/2015 Procedures Procedure Name Priority Date/Time Associated Diagnosis Comments CBC W PLT NO DIFF Routine 10/27/2024 2:2 1 PM [employer]ER History of hemorrhage TRICHOMONAS, TAMIKO, AND BACTERIAL VAGINOSIS BY MICHAEL Routine 10/27/2024 1:50 PM [employer]ER Vaginal discharge GC CHLAMYDIA TRACH PROBE Routine 01/14/2024 12:18 PM [employer]ER Encounter for supervision of normal first in first trimester ANTI HIV 1/2 Routine 01/14/2024 12:07 PM [employer]ER Encounter for supervision of normal first in first trimester ANTI HCV Routine 01/14/2024 12:07 PM [employer]ER Encounter for supervision of normal first in first trimester from Last 3 Months or Most Recently Relevant to Health Maintenance Results * (ABNORMAL) CBC W PLT NO DIFF (10/27/2024 2:21 PM [employer] FINISHER) Pathologist [facility] WHITE BLOOD CELL COUNT 8.3 3.8 - 10.8 Thousand/u L [facility] RED BLOOD CELL COUNT 5.25(H) 3.80 - 5.10 Million/uL [facility] HEMOGLOBIN 14.3 11.7 - 15.5 g/dL [facility] HEMATOCRIT 45.0 35.0 - 45.0 % [facility] MCV 85.7 80.0 - 100.0 fL [facility] MCH 27.2 27.0 - 33.0 pg [facility] MCHC 31.8(L) 32.0 - 36.0 g/dL [facility] Comment: For adults, a slight decrease in the calculated MCHC value (in the range of 30 to 32 g/dL) is most likely not clinically significant; however, it should be interpreted with caution in correlation with other red cell parameters and the patient's clinical condition. RDW 12.7 11.0 - 15.0 % [facility] PLATELET COUNT 245 140 - 400 Thousand/u L [facility] MPV 12.9(H) 7.5 - 12.5 fL [facility] Blood BLOOD SPECIMEN / Unknown 10/27/2024 2:21 PM [employer]ISHER 10/27/2024 2:28 PM [employer]ISHER us Cindy Adamson DO HEMATOLOGY Final Resu lt Performing Organization Address City/[facility]/ZIP Co de Phone Number [facility] [address] [place] [address], [facility] [address] [place] [address] * TRICHOMONAS, TAMIKO, AND BACTERIAL VAGINOSIS BY MICHAEL (10/27/2024 1:50 PM [employer] FINISHER) TAMIKO SPECIES Negative Negative 11:59 AM [employer] FINISHER [facility] TAMIKO GLABRATA Negative Negative 10/28/2024 11:59 AM [employer] HAND FINISHER [facility] TRICHOMONAS VVA Negative Negative 11:59 AM [employer] FINISHER [facility] BACTERIAL VAGINOSIS Negative Negative 10/28/2024 11:59 AM [employer] FINISHER [facility] Other VAGINAL SWAB / Unknown Non-Blood / Unknown 10/27/2024 1:50 PM [employer] FINISHER 10/27/2024 2:36 PM [employer] FINISHER us Cindy Adamson DO MICROBIOLOGY Final Resu lt [facility] [address] [place] [address], [place] * NAILHEAD SETTER PROBE - GC CHLAMYDIA DNA PCR [[id number]] (01/14/2024 12:18 PM [employer] FINISHER) Pathologist [facility] CHLAMYDIA PROBE Negative 2:48 AM [employer] HAND FINISHER [facility] N GONORRHOEAE PROBE Negative 01/15/2024 2:48 AM [employer] HAND FINISHER [facility] Other URINE SPECIMEN / Unknown Non-Blood / Unknown 01/14/2024 12:18 PM [employer] FINISHER 01/14/2024 12:18 PM [employer] FINISHER Cindy Adamson DO MICROBIOLOGY Final Resu lt Performing Organization Address [facility] Co de Phone Number [facility] [address] [place] [id number], [place] * ANTI HCV (01/14/2024 12:07 PM [employer] FINISHER) [facility] HEPATITIS C ANTIBODY Non-Reacti ve Non-React broderick 01/14/2024 9:36 PM [employer] HAND FINISHER [facility] Comment:Please note, per www .CDC.gov: If a patient is known to be at high risk of HCV infection, or is symptomatic, and the physician's suspicion of HCV infection is high, HCV RNA testing is often employed and is of diagnostic value, even after an initial negative anti-HCV test result. Blood BLOOD SPECIMEN / Unknown Venipuncture / Unknown 01/14/2024 12:07 PM [employer] FINISHER 01/14/2024 12:10 PM [employer] FINISHER Cindy Adamson DO SEND OUTS Final Resu lt Performing Organization Address City/[facility]/ZIP Co de Phone Number [facility] [address] [place] [id number], [place] * ANTI HIV 1/2 (01/14/2024 12:07 PM [employer] FINISHER) Pathologist [facility] HIV-1/HIV-2 SCREEN Non-Reacti ve Non-Reacti ve 01/14/2024 9:32 PM [employer] FINISHER [facility] Comment:HIV-1 p24 and HIV-1/ HIV-2 Ab Not Detected. Blood BLOOD SPECIMEN / Unknown Venipuncture / Unknown 01/14/2024 12:07 PM [employer] FINISHER 01/14/2024 12:10 PM [employer] FINISHER Cindy Adamson DO SEND OUTS Final Resu lt [facility] [address] [place] [address], [place] from Last 3 Months or Most Recently Relevant to Health Maintenance Insurance [facility] Member Subscriber Plan / Payer (Ef fective 2021-Present) Name:Bianka Harrison Relation to Subscriber:Self Name:Bianka Harrison Payer ID:[id number] (NAIC) Type:Not on file Address: [address] [address] Care Teams Housing Relocation Relationship Specialty Start Date End Date Cindy Adamson DO [address] [place] [address] PCP - General Family Practice 01/20/24
[2024-12-21 09:13] VITALS: BP 121/82; PULSE 88; RESP 22; TEMP 36.8; O2SAT 99; BMI 26.6
--- NOTE | 2024-12-21 10:18 | ED.GENADULT ---
HPI - General Adult General Date Seen: 12/21/24 Chief complaint: Abdominal Pain Stated complaint: Abdominal Pain/Vomiting Time Seen by Provider: 12/21/24 10:16 History of Present Illness HPI narrative: 19 yo F who is generally healthy. She is and had a vaginal delivery the last year. She had a D&C after delivery for retained placenta but otherwise has no previous surgical history. She presents to the ER this morning with her family for evaluation of abdominal pain, nausea and vomiting. She started having some fairly generalized anterior abdominal pain yesterday evening around 9:00 p.m.. She then awoke at about 1:00 a.m. this morning with nausea and had nonbilious nonbloody emesis. She has had a total of 3 episodes of emesis since then, all nonbloody. Pain is been consistent throughout the night. She tried to take ibuprofen but threw it up. She is not running a fever. Bowel movements have been normal lately. No diarrhea. She notes that she does chronically tend to be constipated and typically treats herself at home with laxatives if she does not have a bowel movement for couple of days. Stool pattern has been normal for her lately. Urination has been normal. No unusual vaginal bleeding or discharge. No fever. No known sick exposures. Related Data Home Medications ?Medication ?Instructions ?Recorded ?Confirmed prenatals 1 tab .Route DAILY 01/13/24 08/25/24 Previous Rx's ?Medication ?Instructions ?Recorded ferrous sulfate 325 mg (65 mg 325 mg PO DAILYWM #30 tabs 08/28/24 iron) tablet ondansetron HCl 4 mg tablet 4 mg PO Q8H PRN nausea and 12/21/24 vomiting #10 tabs Allergies Allergy/AdvReac Type Severity Reaction Status Date / Time No Known Drug Allergies Allergy Verified 12/21/24 11:31 [facility] Medical History (Updated 12/21/24 @ 12:26 by Mc Kearney MD) Term ?Z34.90 - Encounter for supervision of normal , unspecified, unspecified trimester (ICD-10) Cholestasis during ?O26.649 - Intrahepatic cholestasis of , unspecified trimester (ICD-10) No significant past medical history Surgical History No significant past surgical history Social History What is your current living situation?: I presently have a place to live Problems where you live: no known problems In the past 12 months, utilities in danger of being shut off: no In past 12 months, lack of transportation kept you from medical appts, meetings, work, or getting things needed for daily living: no In the past 12 mos, have been you worried that your food would run out before you had money to buy more?: never true In the past 12 mos, the food you bought just didn't last and you didn't have money to buy more?: never true Smoking Status: Never smoker Do you use any of these nicotine containing products: None Second hand tobacco smoke exposure: No How often do you have a drink containing alcohol: never How often do you have six or more drinks on one occasion: Never AUDIT-C Alcohol total score: 0 Non-prescribed substance use: marijuana (any form) How often does anyone, including family, friends and others, physically hurt you: never How often does anyone, including family, friends and others, insult or talk down to you: never How often does anyone, including family, friends and others, threaten you with harm: never How often does anyone, including family, friends and others, scream or curse at you: never service: No Exam Narrative: Exam Narrative: Constitutional: Appears well-developed and well-nourished. Alert. Conversant but uncomfortable. Non toxic. HENT: Head: Atraumatic. Nose: Nose normal. Mouth/Throat: Oral mucosa is clear and moist. no trismus. Pharynx normal. Eyes: Conjunctivae normal. EOM normal. Pupils equal, round, and reactive to light. No scleral icterus. Neck: Normal range of motion. Neck supple. No tracheal deviation present. Cardiovascular: Normal rate, regular rhythm. No gallop. No friction rub. No murmur heard. Symmetric radial artery pulses Pulmonary/Chest: Effort normal. No stridor. No respiratory distress. No wheezes. No rales. No rhonchi . No tenderness. Abdominal: Soft. Bowel sounds normal. No distension. No mass. Diffuse tenderness, including epigastric, periumbilical, left upper quadrant, left lower quadrant, right lower quadrant. She is not really tender in the right upper quadrant. No CVA tenderness. No rebound. No guarding. Musculoskeletal: RUE: Normal range of motion. No tenderness. No deformity LUE: Normal range of motion. No tenderness. No deformity RLE: Normal range of motion. No edema. No tenderness. No deformity LLE: Normal range of motion. No edema. No tenderness. No deformity Neurological: Alert and oriented to person, place, and time. Normal strength. CN II-VII intact. No sensory deficit. GCS eye subscore is 4. GCS verbal subscore is 5. GCS motor subscore is 6. Normal coordination Skin: Skin is warm and dry. No rash noted. No pallor. Normal capillary refill. Psychiatric: Normal mood. Normal affect. Const: Vital Signs, click to edit/add: Vital Signs - 24 hr 12/21/24 09:13 Temperature 98.2 F Pulse Rate [Pulse Oximeter] 88 Respiratory Rate 22 Blood Pressure [Ri ght Upper Arm] 121/82 Pulse Oximetry 99 Oxygen Delivery Me thod Room Air Course Course ED Course: Recheck-says she feels much better. Still of mild but minimal pain. Nausea resolved. Tolerating p.o. feels comfortable discharging home Vital Signs Vital signs: Initial Vital Signs Temperature 98.2 F 12/21/24 09:13 Temperature Source Temporal Artery Scan 12/21/24 09:13 Pulse Rate 88 12/21/24 09:13 Respiratory Rate 22 12/21/24 09:13 Blood Pressure 121/82 12/21/24 09:13 Blood Pressure Mean 95 12/21/24 09:13 Pulse Oximetry 99 12/21/24 09:13 Oxygen Delivery Method Room Air 12/21/24 09:13 Vital Signs Temperature 98.2 F 12/21/24 09:13 Pulse Rate 88 12/21/24 09:13 Respiratory Rate 22 12/21/24 09:13 Blood Pressure 121/82 12/21/24 09:13 Pulse Oximetry 99 12/21/24 09:13 Oxygen Delivery Method Room Air 12/21/24 09:13 Temperature 98.2 F 12/21/24 09:13 Pulse Rate 88 12/21/24 09:13 Respiratory Rate 22 12/21/24 09:13 Blood Pressure 121/82 12/21/24 09:13 Pulse Oximetry 99 12/21/24 09:13 Oxygen Delivery Method Room Air 12/21/24 09:13 Medications Administered Medications: Discontinued Medications Generic Name Dose Route Start Last Admin Trade Name Maryuri PRN Reason Stop Dose Admin Sodium Chloride 1,000 mls @ 1,000 mls/hr 12/21/24 10:30 12/21/24 12:01 0.9 % Sodium Chloride 1000 Ml IV 12/21/24 11:29 Infused .Q1H TYREE Infusion Ketorolac Tromethamine 15 mg 12/21/24 10:28 12/21/24 10:49 Ketorolac 15 Mg/Ml Inj IVP 12/21/24 10:29 15 mg ONCE ONE Administration Ondansetron HCl 4 mg 12/21/24 10:28 12/21/24 10:49 Ondansetron 2 Mg/Ml Inj IVP 12/21/24 10:29 4 mg ONCE ONE Administration Medical Decision Making MDM Narrative Medical decision making narrative: Presented to the Emergency Department with generalized abdominal pain with nausea and vomiting that began over a night last night. No diarrhea. Pain was fairly generalized but if anything least in the right upper quadrant. The differential diagnosis of abdominal pain includes: Appendicitis, Bowel Obstruction, Ulcer, Ischemia, Cholecystitis, Diverticulitis, Pancreatitis, UTI, kidney stone, Enteritis/Colitis, amongst many other etiologies. Laboratory testing does not reveal a cause for the patient's pain. She does have mildly abnormal LFTs, transaminases. They were normal last August. She is not having any right upper quadrant pain to suggest hepatitis, cholecystitis. I suspect these could possibly related to a viral illness which might be causing her symptoms. Would recommend close outpatient follow-up with PCP and recheck within 1-[address] scan i shows evidence for a right ovarian or paraovarian cyst. Patient was previously aware of this and is barely been present for the past 4 years or so. Discussed with her that this is an on unusual duration for a typical corpus luteum cyst and would advise close follow-up and repeat ultrasound with PCP. Patient verbalizes understanding. Overall though she is not really having pain localized to the right lower quadrant so I do not think this cyst is actually causing her acute symptoms today. The exact etiology of the abdominal pain is not clear at this time, although with nausea and crampy pain, suspect possible viral infection.. No life threatening cause or need for emergent surgery or hospital admission is detected today. The patient was advised that if symptoms do not completely resolve within another 24-48 hours re-evaluation with primary care or return to the ED is indicated. The patient also understands that if they worsen, they should return to the ER right away. I discussed the uncertainty about the diagnosis and answered the patient's questions. Abdominal pain return precautions discussed. Zofran prescription. Lab Data Labs: Lab Results 12/21/24 12/21/24 Range/Units 10:38 12:10 WBC 9.23 (4.50-11.00) K/uL RBC 5.56 H (4.00-5.20) m/uL Hgb 14.5 (12.0-16.0) gm/dL Hct 42.5 (33.0-51.0) % MCV 76 L (80-100) fL MCH 26 (26-34) pg MCHC 34 (32-36) gm/dL RDW Coeff of Cory 14.3 (11.5-15.5) % Plt Count 192 (140-440) K/uL Neut % (Auto) 90.2 H (42.0-72.0) % Lymph % (Auto) 5.5 L (20-44) % [place] % (Auto) 3.9 (0.0-11.0) % Eos % (Auto) 0.1 (0.0-7.0) % Baso % (Auto) 0.2 (0.0-3.0) % Neut # (Auto) 8.30 H (1.7-7.0) K/uL Lymph # (Auto) 0.50 L (0.90-2.90) K/uL [place] # (Auto) 0.40 (0.00-0.90) K/UL Eos # (Auto) 0.01 (0.00-0.50) K/uL Baso # (Auto) 0.02 (0.00-0.30) K/uL Abs Immat Gran (auto) 0.01 (0.00-0.30) K/uL Imm/Tot Granulo (auto) 0.1 % Sodium 141 (135-149) mmol/L Potassium 4.2 (3.6-5.1) mmol/L Chloride 105 (96-114) mmol/L Carbon Dioxide 25 (20-32) mmol/L Anion Gap 11 (7-15) mEq/L BUN 15 (5-24) mg/dL Creatinine 0.6 (0.5-1.5) mg/dL Estimated Creat Clear 123.72 Estimated GFR 132 ml/min Glucose 103 (60-115) mg/dL Calcium 9.4 (8.4-10.6) mg/dL Total Bilirubin 1.0 (0.1-1.5) mg/dL AST 52 H (12-35) U/L ALT 42 H (4-35) U/L Alkaline Phosphatase 109 (40-150) U/L Total Protein 7.7 (6.0-8.3) g/dL Albumin 4.8 (3.3-5.0) g/dL Lipase 41 (23-300) U/L HCG, Qual Negative (Negative) Urine Color Yellow (Yellow) Urine Appearance Clear (Clear) Urine pH 6.0 (5.0-8.5) Ur Specific [place] 1.010 (1.000-1.030) Urine Protein Negative (Negative) Urine Glucose (UA) Negative (Negative) Urine Ketones Trace A (Negative) Urine Blood Negative (Negative) Urine Nitrite Negative (Negative) Urine Bilirubin Negative (Negative) Urine Urobilinogen 0.2 (0.2-1.0) Ur Leukocyte Esterase Negative (Negative) Imaging Data CT scan - abdomen: Attestation: I have reviewed the pertinent imaging results. Radiologist's impression: IMPRESSION: The right paraovarian cyst has grown slightly since the previous exam. There are not any CT findings of ovarian torsion. Discharge Plan Discharge Clinical Impression: Abdominal pain, Vomiting, Cyst of right ovary, Abnormal LFTs Patient Disposition: Home, Self-Care Condition: Stable Instructions: Acute Nausea and Vomiting (DC), Abdominal Pain (ED) Additional Instructions: As we discussed, your blood work today shows very mildly abnormal liver tests. I suspect these are probably caused by a virus that is causing her stomach upset. However it is very important for you to recheck your blood tests with your regular doctor within 1-[address] scan today shows that you have a cyst near your right ovary. Please recheck this with her doctor as well. You should have a follow-up ultrasound within 1-2 months. Fortunately, so far we do not see anything serious causing your pain. No evidence for appendicitis or bowel obstruction. I suspect that your vomiting and pain might be related to to a stomach virus. Please use ibuprofen or Tylenol for pain and use Zofran if needed for nausea. Drink plenty of fluids and stay hydrated. Come back to the ER right away if you have worsening pain, fever, bloody vomit or stool, or any concerns. If you are not completely improved within 48 hours, please return to the ER or recheck with your doctor. Prescriptions: New ondansetron HCl 4 mg tablet 4 mg PO Q8H PRN (Reason: nausea and vomiting) Qty: 10 0RF No Action ferrous sulfate 325 mg (65 mg iron) Tablet 325 mg PO DAILYWM Qty: 30 0RF prenatals 1 tab .Route DAILY Follow Up/Referrals: Cindy Adamson DO [Primary Care Provider] - Stand Alone Forms: [employer] Info Instructions
--- OUTSIDE RECORDS SUMMARY | 2024-12-21 10:46 | XMS_ITS | Clinical Summary ---
Author Organization [facility] Address [place], [place] [address] Care Team Providers Care Clinical Research Spec Name Role Phone Cindy Adamson DO Primary Care Provider [phone] Allergies No known active allergies Medications loratadine [...] Department Care Team Description 10/27/2024 1:10 PM TRAFFIC ATTENDANT Office Visit [facility] [address] [place], [place] [id number] Cindy Adamson, Care (delivered 08/26/24, having on and off bleeding, will bleed for 1 week, stop for 2 days, and then come back ) 10/27/2024 Travel from Last 3 Months Immunizations Name Administration Dates Next Due AMB Influenza, (Flumist) Meka e Intranasal,LAIV4 (Flu Clinic Only) 08/12/2013 AMB Influenza, IIV4 PF (=>6 mos Flulaval,Fluzone Fluarix)(Flu Clinic Only) 08/15/2014 COVID-19 vaccine ([employer] 30mcg/0.3mL) PF, MDV 04/15/2021,03/25/2021 DTaP 07/06/2008,09/11/2005 [id number] (Pediarix) 2004,2004,1 HIB PRP-OMP (PedvaxHIB) 09/11/2005,2004, HPV [...] Date Recorded PHQ-2 TOTAL SCORE 0 01/29/2023 [place] Depression Scale Answer Date Recorded [place] Depression Scale Total 1 10/27/2024 The thought [...] on file Legal Sex Female 7:05 AM TRAFFIC ATTENDANT Gender Identity Not on file Sexual Orientation Not on file Obstetrics History Para Term AB IAB SAB Ectopic Multiple Livin g Live Births 1 1 1 1 1 Date Outcome GA Total Labor Labor/2nd/3rd Weight Sex Type Anes PTL Meka A1 A5 Name Clin 10/18/2 024 Term 38w 0d 3.71 kg (8 lb 3 oz) F Vag Living 8 9 Traxl er, Cinyd Velarde DO Complications:Atony of uteru s, Hemorrhage Delivery Location:Hospital ( [facility]) Last Filed Vital Signs Vital Sign Reading Time Taken Comments Blood Pressure 104/71 10/27/2024 1:24 PM TRAFFIC ATTENDANT Pulse 87 10/27/2024 1:24 PM TRAFFIC ATTENDANT Temperature 37.6 C (99.7 F) 01/22/2023 6:23 PM CDT Respiratory Rate 20 01/22/2023 6:23 PM CDT Oxygen Saturation 97% 08/22/2024 11:23 AM CDT Inhaled Oxygen Concentration - - Weight 72 kg (158 lb 12.8 oz) 10/27/2024 1:24 PM TRAFFIC ATTENDANT Height 161.7 cm (5' 3.66) 01/14/2024 10:52 [...] NO DIFF Routine 10/27/2024 2:2 1 PM TRAFFIC ATTENDANT History of hemorrhage TRICHOMONAS, TAMIKO, AND BACTERIAL VAGINOSIS BY MICHAEL Routine 10/27/2024 1:50 PM TRAFFIC ATTENDANT Vaginal discharge GC CHLAMYDIA TRACH PROBE Routine 01/14/2024 12:18 PM TRAFFIC ATTENDANT Encounter for supervision of normal first in first trimester ANTI HIV 1/2 Routine 01/14/2024 12:07 PM TRAFFIC ATTENDANT Encounter for supervision of normal first in first trimester ANTI HCV Routine 01/14/2024 12:07 PM TRAFFIC ATTENDANT Encounter for supervision of normal first in first trimester from Last 3 Months or Most Recently Relevant to Health Maintenance Results * (ABNORMAL) CBC W PLT NO DIFF (10/27/2024 2:21 PM TRAFFIC ATTENDANT) Pathologist [facility] [...] BLOOD SPECIMEN / Unknown 10/27/2024 2:21 PM TRAFFIC ATTENDANT 10/27/2024 2:28 PM TRAFFIC ATTENDANT us Cindy Adamson DO HEMATOLOGY Final Resu lt Performing Organization Address City/[facility]/ZIP Co de Phone Number [facility] [employer] [facility] [address] [place] [address], [facility] [address] [place] [address] * TRICHOMONAS, TAMIKO, AND BACTERIAL VAGINOSIS BY MICHAEL (10/27/2024 1:50 PM TRAFFIC ATTENDANT) TAMIKO SPECIES Negative Negative 11:59 AM TRAFFIC ATTENDANT [facility] TAMIKO GLABRATA Negative Negative 10/28/2024 11:59 AM TRAFFIC ATTENDANT [facility] TRICHOMONAS VVA Negative Negative 11:59 AM TRAFFIC ATTENDANT [facility] BACTERIAL VAGINOSIS Negative Negative 10/28/2024 11:59 AM TRAFFIC ATTENDANT [facility] Other VAGINAL SWAB / Unknown Non-Blood / Unknown 10/27/2024 1:50 PM TRAFFIC ATTENDANT 10/27/2024 2:36 PM TRAFFIC ATTENDANT us Cindy Adamson DO MICROBIOLOGY Final Resu lt [facility] [address] [place] [address], [place] * DOUBLE SPINDLE SHAPER OPERATOR PROBE - GC CHLAMYDIA DNA PCR [[id number]] (01/14/2024 12:18 PM TRAFFIC ATTENDANT) Pathologist [facility] CHLAMYDIA PROBE Negative 2:48 AM TRAFFIC ATTENDANT [facility] N GONORRHOEAE PROBE Negative 01/15/2024 2:48 AM TRAFFIC ATTENDANT [facility] Other URINE SPECIMEN / Unknown Non-Blood / Unknown 01/14/2024 12:18 PM TRAFFIC ATTENDANT 01/14/2024 12:18 PM TRAFFIC ATTENDANT Cindy Adamson DO MICROBIOLOGY Final Resu lt Performing Organization Address [facility] Co de Phone Number [facility] [address] [place] [phone], [place] * ANTI HCV (01/14/2024 12:07 PM TRAFFIC ATTENDANT) [facility] HEPATITIS C ANTIBODY Non-Reacti ve Non-React broderick 01/14/2024 9:36 PM TRAFFIC ATTENDANT [facility] Comment:Please note, per www .CDC.gov: If a patient is known to be at high risk of HCV infection, or is symptomatic, and the physician's suspicion of HCV infection is high, HCV RNA testing is often employed and is of diagnostic value, even after an initial negative anti-HCV test result. Blood BLOOD SPECIMEN / Unknown Venipuncture / Unknown 01/14/2024 12:07 PM TRAFFIC ATTENDANT 01/14/2024 12:10 PM TRAFFIC ATTENDANT Cindy Adamson DO SEND OUTS Final Resu lt Performing Organization Address City/[facility]/ZIP Co de Phone Number [facility] [address] [place] [id number], [place] * ANTI HIV 1/2 (01/14/2024 12:07 PM TRAFFIC ATTENDANT) Pathologist [facility] HIV-1/HIV-2 SCREEN Non-Reacti ve Non-Reacti ve 01/14/2024 9:32 PM TRAFFIC ATTENDANT [facility] Comment:HIV-1 p24 and HIV-1/ HIV-2 Ab Not Detected. Blood BLOOD SPECIMEN / Unknown Venipuncture / Unknown 01/14/2024 12:07 PM TRAFFIC ATTENDANT 01/14/2024 12:10 PM TRAFFIC ATTENDANT Cindy Adamson DO SEND OUTS Final Resu lt [facility] [address] [place] [address], [place] from Last 3 Months or Most Recently Relevant to Health Maintenance Insurance [facility] Care Teams Clinical Research Spec Relationship Specialty Start Date End Date Cindy Adamson DO [address] [place] [id number] PCP - General Family Practice 01/20/24
[2024-12-21 10:47] LABS: Basophils Absolute Auto 0.02 K/uL (0.00-0.30); Basophils Percent Auto 0.2 % (0.0-3.0); Eosinophils Absolute Auto 0.01 K/uL (0.00-0.50); Eosinophils Percent Auto 0.1 % (0.0-7.0); Hematocrit 42.5 % (33.0-51.0); Hemoglobin* 14.5 gm/dL (12.0-16.0); Immature Granulocytes Abs Auto 0.01 K/uL (0.00-0.30); Immature Granulocytes Pct Auto 0.1 %; Lymphocytes Percent Auto 5.5 % (20-44); Mean Corpuscular HGB Conc 34 gm/dL (32-36); Mean Corpuscular Hemoglobin 26 pg (26-34); Mean Corpuscular Volume 76 fL (80-100); Monocytes Percent Auto 3.9 % (0.0-11.0); Neutrophils Percent Auto 90.2 % (42.0-72.0); Platelet Count* 192 K/uL (140-440); RDW Coefficient of Variation % 14.3 % (11.5-15.5); Red Blood Count 5.56 m/uL (4.00-5.20); White Blood Count* 9.23 K/uL (4.50-11.00)
[2024-12-21] MEDS: 0.9 % SODIUM CHLORIDE 1000 ml 1,000 ML IV (10:48)
[2024-12-21] MEDS: KETOROLAC 15 MG/ML inj IVP (10:49)
[2024-12-21] MEDS: ONDANSETRON 2 MG/ML inj 4 MG IVP (10:49)
[2024-12-21 10:50] LABS: Slide Review Reflex No
[2024-12-21 11:08] LABS: HCG Qualitative Serum* Negative (Negative)
[2024-12-21 11:11] LABS: Albumin* 4.8 g/dL (3.3-5.0)
[2024-12-21 11:12] LABS: Chloride* 105 mmol/L (96-114); Potassium* 4.2 mmol/L (3.6-5.1); Sodium* 141 mmol/L (135-149)
[2024-12-21 11:14] LABS: Alkaline Phosphatase* 109 U/L (40-150); Anion Gap 11 mEq/L (7-15); Aspartate Amino Transferase* 52 U/L (12-35); Carbon Dioxide* 25 mmol/L (20-32); Creatinine* 0.6 mg/dL (0.5-1.5); Est. Creatinine Clearance* 123.72; Estimated Glomerular Filt Rate 132 ml/min; Total Protein* 7.7 g/dL (6.0-8.3)
[2024-12-21 11:15] LABS: Alanine Aminotransferase* 42 U/L (4-35); Blood Urea Nitrogen* 15 mg/dL (5-24); Calcium* 9.4 mg/dL (8.4-10.6); Glucose* 103 mg/dL (60-115); Lipase* 41 U/L (23-300)
[2024-12-21 12:19] LABS: Appearance Urine Clear (Clear); Bilirubin Urine Negative (Negative); Blood Urine Negative (Negative); Color Urine Yellow (Yellow); Glucose Urine Negative (Negative); Ketones Urine Trace (Negative); Leukocyte Esterase Urine Negative (Negative); Nitrite Urine Negative (Negative); Protein Urine Negative (Negative); Urobilinogen Urine 0.2 (0.2-1.0)
[2024-12-21 12:45] LABS: RBC Urine 0-2 (0-2); WBC Urine 0-2 (0-5)
== END 2024-12-21 12:40 | disposition home or self-care (01) ==
PROVIDERS: Emergency Provider Emergency Medicine; PCP Family Medicine
DX: R10.9 Unspecified abdominal pain (principal); R11.10 Vomiting, unspecified; N83.201 Unspecified ovarian cyst, right side; R79.89 Other specified abnormal findings of blood chemistry
CPT/HCPCS: 36415; 74177; 80053; 81001; 83690; 84703; 85025; 96361; 96374; 96375; 99283; 99284; 99285; J1885; J2405; J7030; Q9967